=== PATIENT | female | born 1995 | race American Indian/Alaskan Native ===

== ENCOUNTER 2017-12-02 21:14 | Emergency (ER) | payer SELFPAY ==
[2017-12-02 21:50] VITALS: BP 147/92
[2017-12-02 23:20] LABS: HCG Qualitative,Urine Negative (Negative)
[2017-12-02 23:24] LABS: Bilirubin,Urine NEG (Negative); Blood,Urine LG (Negative); Color,Urine Yellow (Yellow); Mucus,Urine FEW /HPF; Protein,Urine <15 mg/dL mg/dL (Negative); Urobilinogen,Urine < 2.0 mg/dL (<2.0)
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
== END 2017-12-03 03:27 | disposition left against medical advice (07) ==
LOC: ED 21:14
DX: M54.5 Low back pain (principal); Z53.21 Procedure and treatment not carried out due to patient leaving prior to being seen by health care provider
CPT/HCPCS: 72125; 72131; 81001; 81025